=== PATIENT | female | born 1935 | race Caucasian/White ===

== ENCOUNTER → 2021-09-21 | Outpatient (CLI) | payer MEDICARE, OTHER | LOC: HEART CORB 08:30 | DX: I25.10 Atherosclerotic heart disease of native coronary artery without angina pectoris (principal); R94.31 Abnormal electrocardiogram [ECG] [EKG]; R07.2 Precordial pain; R06.02 Shortness of breath | CPT/HCPCS: 78452; A9502; J2785 ==